=== PATIENT | female | born 1995 | race Caucasian/White ===

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

== ENCOUNTER 2017-04-06 11:51 | Outpatient (CLI) ==
[2017-04-07 15:29] LABS: HEPATITIS B SURFACE ANTIBODY Non Reactive (.)
== END 2017-04-06 11:52 | disposition home or self-care (01) ==
LOC: LAB 11:51
PROVIDERS: ATTEND Nurse Practitioner Family
DX: Z00.00 Encounter for general adult medical examination without abnormal findings (principal)
CPT/HCPCS: 36415; 86706; 86735; 86762; 86765; 86787

== ENCOUNTER 2017-07-05 10:06 | Outpatient (CLI) ==
[2017-07-05 10:35] LABS: BASOPHILS % (AUTO) 0.3 % (0.0-3.0); EOSINOPHILS # (AUTO) 0.1 K/ul (0.0-0.7); HEMATOCRIT 35.4 % (37.0-47.0); HEMOGLOBIN 12.3 g/dl (12.0-16.0); IMMATURE GRANULOCYTE % (AUTO) 0.2 % (0.0-5.0); LYMPHOCYTES # (AUTO) 2.2 K/uL (0.60-3.4); LYMPHOCYTES % (AUTO) 33.2 (10.0-50.0); MEAN CORPUSCULAR HEMOGLOBIN 30.6 pg (27.0-31.0); MEAN CORPUSCULAR HGB CONC 34.7 (31.8-35.4); MEAN CORPUSCULAR VOLUME 88.1 fl (81.0-99.0); MONOCYTES # (AUTO) 0.5 K/uL (0.4-2.0); MONOCYTES % (AUTO) 6.8 (0-10); NEUTROPHILS # (AUTO) 3.8 K/ul (2.0-6.9); NEUTROPHILS % (AUTO) 57.5; PLATELET COUNT 270 10^3/uL (140-440); RED BLOOD COUNT 4.02 10^6/ul (4.20-5.40); WHITE BLOOD COUNT 6.65 K/ul (4.6-10.2)
[2017-07-05 11:14] LABS: ALBUMIN 3.4 g/dL (3.4-5.0); ALBUMIN/GLOBULIN RATIO 0.87; ANION GAP 12.1; BILIRUBIN,TOTAL 0.61 mg/dL (0.00-1.20); BUN/CREATININE RATIO 13.79; CREATININE 0.58 mg/dL (0.60-1.30); POTASSIUM 4.1 mmol/L (3.5-5.10); TOTAL PROTEIN 7.3 g/dL (6.4-8.2)
--- NOTE | 2017-07-05 11:15 | US ---
EXAM: Diagnostic right breast ultrasound HISTORY: Small palpable nodule for 2 months. Patient is 22 years old with no family history of cance r. COMPARISON: None FINDINGS: Sonographic evaluation of the right breast in the area of interest demonstrates a retroareo lar 0.5 x 0.3 x 0.5 cm hypoechoic nodule with no internal color Doppler flow. This is wider than isabel l. This is at 1 o'clock with a 2 cm from the nipple. No additional nodule or abnormality is identif ied. IMPRESSION: Hypoechoic nodule in the right breast may represent a small fibroadenoma versus complex cyst. Recommendation: 6 months right breast ultrasound followup is recommended. BIRADS category III: Probable benign finding
== END 2017-07-05 10:07 | disposition home or self-care (01) ==
LOC: RAD 10:06
PROVIDERS: ATTEND Nurse Practitioner Family
DX: N63 Unspecified lump in breast (principal)
CPT/HCPCS: 36415; 80053; 84439; 84443; 85025